=== PATIENT | female | born 1975 | race African-American/Black ===

== ENCOUNTER → 2017-04-15 | Outpatient (CLI) | payer MEDICARE ==
[~2017-04-15] MED LIST: ALDACTONE25 MG PO; CYCLOBENZAPRINE5 MG PO; METFORMIN HCL500 MG PO; ULTRAM 50MG TAB50 MG PO
[2017-04-15 16:02] LABS: CREATININE 0.9 mg/dL (0.6-1.3); POTASSIUM 3.7 mmol/L (3.5-5.1)
--- NOTE | 2017-04-15 16:38 | EKG ---
[place] [address] ELECTROCARDIOGRAM REPORT Name: PRATEEK ESPARZA Room: [facility]#: [id number] Admission: 04/15/17 Attend Phys: Becca Gaffney MD Discharge: Date of : 73 Report #: [id number] THIS REPORT FOR: //name// [facility] Test Date: 2017-04-15 Test Time: 15:31:03 Pat Name: PRATEEK ESPARZA Department: Room: Gender: F Beauty Counselor: TOBIAS : 1975 Requested By: Becca Gaffney Order Number: [id number] Reading MD: Andrey Anna Measurements Intervals [place] Rate: 73 P: 74 MS: 178 QRS: 43 QRSD: 72 T: 36 QT: 381 QTc: 420 Interpretive Statements Sinus rhythm Low voltage, precordial leads No previous ECG available for comparison Electronically Signed On 04-15-2017 16:38:31 [employer] by Andrey Anna [email or web address] <ELECTRONICALLY SIGNED> By: Andrey Anna MD, [facility] 04/15/17 1638 1531 1531 Andrey Anna MD, FACC /EPI
== END ==
LOC: M.LAB 15:21
PROVIDERS: Anesthesiology
DX: Z01.818 Encounter for other preprocedural examination (principal); E11.9 Type 2 diabetes mellitus without complications; L70.9 Acne, unspecified

== ENCOUNTER 2018-03-07 09:46 | Emergency (ER) | payer OTHER ==
[~2018-03-07] VITALS: Ht 162.6 cm; Wt 74.8 kg
[2018-03-07] MEDS ORDERED: BACTRIM DS TAB1 EACH PO (10:10)
[2018-03-07 10:22] VITALS: BP 108/67
== END 2018-03-07 10:23 | disposition home or self-care (01) ==
LOC: M.ERS 09:46
DX: Z48.01 Encounter for change or removal of surgical wound dressing (principal); E28.2 Polycystic ovarian syndrome; E11.9 Type 2 diabetes mellitus without complications

== ENCOUNTER 2018-04-22 19:03 | Emergency (ER) | payer OTHER ==
[~2018-04-22] VITALS: Ht 162.6 cm; Wt 72.6 kg
[~2018-04-22 19:03] MED LIST changes: +BACTRIM DS TAB1 EACH PO
[2018-04-22] MEDS ORDERED: KEFLEX500 M1 PO (19:17)
[2018-04-22] MEDS ORDERED: TRIAMCINOLONE A80 G2 TOP (19:17)
[2018-04-22] MEDS ORDERED: ATORVASTATIN CA40 MG (19:23)
[2018-04-22] MEDS ORDERED: BRINTELLIX10 MG (19:23)
[2018-04-22 19:34] VITALS: BP 122/74
== END 2018-04-22 19:34 | disposition home or self-care (01) ==
LOC: M.ERS 19:03
DX: L02.414 Cutaneous abscess of left upper limb (principal); L30.9 Dermatitis, unspecified; E11.9 Type 2 diabetes mellitus without complications; E28.2 Polycystic ovarian syndrome

== ENCOUNTER → 2018-10-07 | Outpatient (CLI) | payer OTHER ==
[~2018-10-07] MED LIST changes: +ATORVASTATIN CA40 MG; +BRINTELLIX10 MG; +KEFLEX500 M1 PO; +TRIAMCINOLONE A80 G2 TOP
== END ==
LOC: M.RAD 07:42
DX: Z12.31 Encounter for screening mammogram for malignant neoplasm of breast (principal)

== ENCOUNTER → 2020-04-10 | Outpatient (CLI) | payer OTHER | LOC: M.RAD 07:30 | PROVIDERS: ATTEND Family Medicine | DX: Z12.31 Encounter for screening mammogram for malignant neoplasm of breast (principal); N64.89 Other specified disorders of breast ==